=== PATIENT | male | born 1935 | race Hispanic/Latino ===

== ENCOUNTER → 2018-04-07 | Outpatient (CLI) | payer OTHER ==
[~2018-04-07] VITALS: Ht 172.7 cm; Wt 83.5 kg
[~2018-04-07] MED LIST: ASPI-555 PO; CLOP75TA14 PO; METF-444 PO; OMEP20CA10 PO; REGADENOSON 0.4 MG/5 ML PF SYG IVP SCH; SIMV80TA7 PO
== END | disposition home or self-care (01) ==
LOC: SHCH 08:05
PROVIDERS: ATTEND Internal Medicine Cardiovascular Disease
DX: I45.10 Unspecified right bundle-branch block (principal); I10 Essential (primary) hypertension; R07.9 Chest pain, unspecified
CPT/HCPCS: 78452; 93017; 96374; A9500 ×2; J2785

== ENCOUNTER 2021-02-14 03:19 | Emergency (ER) | payer OTHER ==
[~2021-02-14 03:19] MED LIST changes: -ASPI-555 PO; +ASPI-556 PO; -OMEP20CA10 PO; +OMEP20CA12 PO; -REGADENOSON 0.4 MG/5 ML PF SYG IVP SCH; -SIMV80TA7 PO; +SIMV80TA91 PO
[2021-02-14 03:38] VITALS: BP 156/83
[2021-02-14] MEDS ORDERED: CEFAZOLIN SODIUM 1 GM VIAL IM STA (04:42)
[2021-02-14] MEDS ORDERED: BUPIVACAINE/PF 0.5% 30ML VIAL ONE (04:44)
[2021-02-14] MEDS ORDERED: DIPH,PERTUSS(ACELL),TET VAC/PF 0.5 ML VIAL IM ONE (05:00)
[2021-02-14] MEDS ORDERED: TRAM1TAB PO (07:01)
[2021-02-14] MEDS ORDERED: CEFAZOLIN SODIUM 1 GM VIAL ONE (07:10)
[2021-02-14 07:18] LABS: CREATININE 0.9 mg/dL (0.5-1.5)
[2021-02-14] MEDS ORDERED: TETANUS/DIPHTHERIA TOXOID [ADULT] 0.5 ML VIAL IM ONE (07:23)
[2021-02-14] MEDS ORDERED: HYDROCODONE/ACETAMINOPHEN 5/325 MG TAB PO ONE (07:30)
[2021-02-14 07:46] LABS: INR 0.98 (0.85-1.15); PROTHROMBIN TIME 10.7 SEC (9.6-11.6)
== END 2021-02-14 08:00 | disposition home or self-care (01) ==
LOC: EDH 03:19
DX: S01.311A Laceration without foreign body of right ear, initial encounter (principal); M47.812 Spondylosis without myelopathy or radiculopathy, cervical region; E11.9 Type 2 diabetes mellitus without complications; E78.00 Pure hypercholesterolemia, unspecified; I10 Essential (primary) hypertension; M19.90 Unspecified osteoarthritis, unspecified site; Z79.82 Long term (current) use of aspirin; Z79.84 Long term (current) use of oral hypoglycemic drugs; Z79.899 Other long term (current) drug therapy; W01.0XXA Fall on same level from slipping, tripping and stumbling without subsequent striking against object, initial encounter; Y93.89 Activity, other specified; Y92.89 Other specified places as the place of occurrence of the external cause; Y99.8 Other external cause status
CPT/HCPCS: 12051; 36415; 70450; 72125; 80048; 85610; 85730; 90471; 90715; 96372; 99285; J0690; J3490; 90714